=== PATIENT | male | born 1960 | race Caucasian/White ===

== ENCOUNTER 2016-07-22 18:06 | Emergency (ER) | payer OTHER ==
[2016-07-22 14:27] LABS: BASOPHILS 0.4 %; BASOPHILS ABSOLUTE 0.03 10/3/uL (0.0-0.16); EOSINOPHILS 0 %; ER CBC TAT 0 Hrs 10 Mins; HEMATOCRIT 48.3 % (40.0-51.0); HEMOGLOBIN 16.8 g/dL (13.6-17.8); IMMATURE GRANULOCYTES 1.8 %; IMMATURE GRANULOCYTES ABSOLUTE 0.13 10/3/uL (0.0-0.11); LYMPHOCYTES ABSOLUTE 0.89 10/3/uL (0.67-4.30); MANUAL DIFF NO %; MEAN CORPUS HGB CONC 34.8 g/dL (32.0-36.0); MEAN CORPUSCULAR HEMOGLOB 30.4 pg (26.0-34.0); MEAN CORPUSCULAR VOLUME 87.3 fL (80-100); MEAN PLATELET VOLUME 9.6 fL (9.2-13.0); MONOCYTES 5.7 %; MONOCYTES ABSOLUTE 0.42 10/3/uL (0.21-1.20); NEUTROPHILS 80.1 %; NEUTROPHILS ABSOLUTE 5.92 10/3/uL (2.02-8.40); PLATELET COUNT 200 10/3/uL (150-400); RBC DISTRIBUTION WIDTH 13.6 % (12.0-16.0); RED CELL COUNT 5.53 10/6/uL (4.7-6.1); WHITE BLOOD CELLS 7.4 10/3/uL (4.5-10.5)
[2016-07-22 14:43] LABS: A/G RATIO 0.8 (0.7-1.9); ALBUMIN 3.8 G/DL (3.5-5.0); ALKALINE PHOSPHATASE 90 U/L (45-117); BUN (BLOOD UREA NITROGEN) 9 MG/DL (6-23); CALCIUM, SERUM 8.7 MG/DL (8.5-10.4); CHLORIDE, SERUM 106 MMOL/L (96-112); CO2 (CARBON DIOXIDE) 13 MMOL/L (24-34); CREATININE 1.35 MG/DL (0.70-1.30); GFR AFRICAN AMERICAN 68 ML/MIN (>=60); GFR NON AFRICAN AMERICAN 59 ML/MIN (>=60); GLOBULIN 4.5 G/DL (2.5-4.1); GLUCOSE, SERUM 198 MG/DL (60-99); SGOT(AST) 20 U/L (5-40); SGPT(ALT) 35 U/L (5-65); SODIUM, SERUM 137 MMOL/L (135-148); TOTAL BILIRUBIN 0.6 MG/DL (0-1.2); TOTAL PROTEIN 8.3 G/DL (6.0-8.5)
[2016-07-22 17:38] LABS: ACETONE LARGE
[2016-07-22 20:25] LABS: ASCORBIC ACID (UR NOT ORDER) NEG (NEG); BILIRUBIN, URINE NEGATIVE (NEG); ER URINALYSIS TAT 0 Hrs 19 Mins; KETONE, URINE 80 MG/DL (NEG); LEUKOCYTE ESTERASE(NOT OR NEG (NEG); NITRITE (URINE) NEG (NEG); WBC (NOT ORDERED) (RFLEX) < 1 (0-5)
[2016-07-23] MEDS ORDERED: GLUCCHONDR PO (15:14)
[2016-07-23] MEDS ORDERED: MYCELEX TROCHE10 MG PO (15:21)
[2016-07-23] MEDS ORDERED: TRICOR145 PO (15:22)
[2016-07-23] MEDS ORDERED: [UNRECOGNIZED DRUG - CODE] PO (15:22)
[2016-07-23] MEDS ORDERED: PR25 PO (15:24)
[2016-08-22] MEDS ORDERED: LEVEMIR SC (09:39)
== END 2016-07-22 21:52 | disposition home or self-care (01) ==
LOC: ER 18:06
PROVIDERS: Hospitalist
DX: E86.0 Dehydration (principal); E11.9 Type 2 diabetes mellitus without complications
CPT/HCPCS: 74176; 80053; 81001; 82009; 83690; 85025; 96361; 96374; 99284; J2405

== ENCOUNTER 2016-07-23 15:57 | Inpatient (IN) | payer OTHER ==
--- NOTE | ~2016-07-23 | DS ---
Discharge Summary [facility] [address] [place]. [address] NAME: NICA LAGUNA : 62 STATUS : DIS IN PAT#: [id number] AGE: 56 ADM/REG DATE : 07/23/16 MR#: [id number] REPORT SERV DATE: 08/09/16 DICTATED BY: DEANA RICHARDSON DATE: 08/08/16 REPORT STATUS : Draft TRANSCRIBED BY: MODL DATE: 08/08/16 ADMISSION DATE: 07/23/2016 DISCHARGE DATE: 07/31/2016 DISCHARGE DIAGNOSES: 1. Diabetic ketoacidosis. 2. Acute renal failure. 3. Hypokalemia. 4. Hypophosphatemia. 5. Hyponatremia. 6. Acute encephalopathy. 7. Type 2 diabetes. 8. Pancreatic tail mass nodule. Initial ICU care admission by Dr. Odom. CONSULTATIONS: With Dr. Salcedo, Dr. Daly, and Dr. Jose Voss. DISCHARGE DISPOSITION: Home with family. DISCHARGE MEDICATIONS AND INSTRUCTIONS: Instructions for insulin use. PCP in five to seven days. FOLLOWUP: Follow up with Dr. Ty as ordered for pancreatic cyst. Follow up with Dr. Voss as ordered for EUS and follow pancreatic mass. DISCHARGE MEDICATIONS: Protonix 40 mg one tab p.o. daily; MiraLAX over the counter as needed; glucosamine daily; TriCor 145 mg one tab p.o. daily; Phenergan 25 mg one tab p.o. q.4 hours as needed for nausea, vomiting, and diarrhea; Xigduo was stopped; was stopped; the patient to start Levemir 15 units b.i.d. HOSPITAL COURSE: Please see H and P for complete details of HPI. Briefly, Mr. Laguna is a very pleasant 56-year-old male, recently diagnosed with diabetes, started on medications, who presented in DKA, renal failure, and acute encephalopathy requiring ICU admission. The patient's initial pH was 6.9 with wide anion gap requiring multiple days of insulin drip therapy, IV fluids, and with pseudohyponatremia including hypernatremia. The patient was monitored with multiple electrolyte imbalances. This was in concurrence with GREG. Renal was consulted, as the patient was being treated aggressively for his DKA. Monitor closely. Renal function continued to improve. The patient was able to be transferred out of ICU with resolution of encephalopathy. Incidentally, the patient did have CT of abdomen and pelvis noting pancreatic nodule. This was also revaluated with IV contrast once GREG had resolved and it was thought safe to perform. The patient was noted to have a pancreatic mass. This prompted evaluation by Dr. Voss and GI consultation. However, due to the patient's acute presentation initially with DKA, will need continued monitoring and improvement with this. The patient is to have outpatient followup with EUS and General Surgery, Dr. Voss, along with Dr. Ty for further outpatient workup of Discharge Summary [address] [place]. [address] NAME: NICA LAGUNA : 62 STATUS : DIS IN PAT#: [id number] AGE: 56 ADM/REG DATE : 07/23/16 MR#: [id number] REPORT SERV DATE: 08/09/16 DICTATED BY: EDANA RICHARDSON DATE: 08/08/16 REPORT STATUS : Draft TRANSCRIBED BY: MODL DATE: 08/08/16 pancreatic nodule. The patient and family were in agreement of plan and aware of discharge planning. All questions were answered prior to discharge. DDN/MODL Deana Richardson MD / [id number] CC: MD MAHESH Hernandez
--- NOTE | ~2016-07-23 | CN ---
Consultation Report [facility] [address] [place]. [address] NAME: NICA LAGUNA : 62 STATUS : DIS IN PAT#: [id number] AGE: 56 ADM/REG DATE : 07/23/16 MR#: [id number] REPORT SERV DATE: 07/31/16 DICTATED BY: ANGELO CALDWELL DATE: 07/31/16 REPORT STATUS : Draft TRANSCRIBED BY: MODL DATE: 07/31/16 INPATIENT CONSULT NOTE DATE OF CONSULTATION: 07/31/2016 REASON FOR CONSULTATION: Pancreatic cystic lesion. HISTORY OF PRESENT ILLNESS: Mr. Laguna is a very pleasant 56-year-old male with no significant past medical history aside from newly diagnosed diabetes mellitus, who presented to the emergency room approximately one week ago with multiple complaints and was diagnosed with diabetic ketoacidosis. During his hospitalization, the patient underwent a CT scan of the abdomen and pelvis, which made mention of a soft tissue lesion in the tail of his pancreas. The patient underwent further imaging with a multiphase CT two days prior to this consultation for further evaluation. On that scan, the patient was found to have a 2.5 x 2.6 cystic lesion in the tail of the pancreas. There was no pancreatic ductal dilatation. There was no associated mass. There was no surrounding lymphadenopathy. The patient had been noted to have a mildly elevated CA 19-9 of 57. The patient has no family history of pancreatic cancer or other GI related malignancies that he is aware of. The patient has never had a prior episode of pancreatitis and is not a heavy drinker. The patient denies any history of abdominal trauma. No prior episodes of pancreatitis that the patient is aware of. GI was consulted for consideration of endoscopic ultrasound for further evaluation. REVIEW OF SYSTEMS: All systems reviewed and were negative aside from what was mentioned in history of present illness. Specifically, the patient denies any fevers or chills. No current nausea or vomiting. The patient had been constipated previously, but is currently moving his bowels without difficulty. No abdominal pain. No chest pain or shortness of breath. PAST MEDICAL HISTORY: 1. Chronic back pain. 2. New diagnosis of diabetes mellitus. FAMILY HISTORY: No family history of GI related malignancy. SOCIAL HISTORY: The patient denies any smoking, alcohol, or illicit substance use. ALLERGIES: THE PATIENT HAS NO KNOWN DRUG ALLERGIES. HOME MEDICATIONS: The patient's outpatient medications prior to admission were: 1. Metformin. 2. Glucosamine. Consultation Report [facility] [address] [place]. [address] NAME: NICA LAGUNA : 62 STATUS : DIS IN PAT#: [id number] AGE: 56 ADM/REG DATE : 07/23/16 MR#: [id number] REPORT SERV DATE: 07/31/16 DICTATED BY: ANGELO CALDWELL DATE: 07/31/16 REPORT STATUS : Draft TRANSCRIBED BY: SHEN DATE: 07/31/16 PHYSICAL EXAMINATION: VITAL SIGNS: Most recent vital signs include temperature of 98.3, pulse rate of 77, blood pressure of 130/69, saturating 98% on room air. GENERAL INSPECTION: Reveals an overweight middle-aged male, who is and is sitting in a chair. HEENT: Head is normocephalic, atraumatic. Sclerae nonicteric. Pupils appear equal and round. HEART: The patient has a regular rate and rhythm. No respiratory distress. Clear lung sounds. ABDOMEN: Soft, nontender, nondistended. EXTREMITIES: No cyanosis, clubbing, or edema. SKIN: No jaundice or rash. NEURO: No gross motor deficits. He is alert and oriented. Mood and affect are appropriate. Judgment appears to be intact. LABORATORY DATA: Most recent laboratory results include a CBC with a white count of 6.0, hemoglobin of 12.6, and a platelet count of a 144,000. Electrolyte panel was unremarkable aside from elevated glucose of 181. DIAGNOSTIC STUDIES: CT of the abdomen was reviewed personally by myself and showed evidence of a normal pancreas with an approximately 2.5 cm cyst in the tail. There was no pancreatic ductal dilatation upstream from this. No obvious connection to the pancreatic duct. No nodule seen along the wall of the cyst. No associated mass was seen. No local lymphadenopathy. ASSESSMENT AND PLAN: Mr. Laguna is a very pleasant 56-year-old male admitted for diabetic ketoacidosis and new diagnosis of diabetes mellitus, who was incidentally found to have a 2.5 cm cystic lesion in the tail of the pancreas. Differential diagnosis for this includes both pseudocyst and side-branch intraductal papillary mucinous neoplasm. No worrisome features. Would recommend that this is further evaluated either with MRI or with endoscopic ultrasound in the near future. However, this does not need to be done during this inpatient stay. The patient currently is asking if he can go home and have this followup as an outpatient, this is more than acceptable plan. Would recommend more definitive imaging sometime within the next month, but this is not emergent. Again, would have the lesion visualized for any sign of mural nodularity or associated mass by the cyst. EUS or MRCP may also be able to determine if there is connection with the main pancreatic duct, which would yield the diagnosis of side-branch intraductal papillary mucinous neoplasm. However, with the uniformly enhancing wall, this appears likely to be a small pseudocyst; however, intraductal papillary mucinous neoplasm is still within the differential, relatively low risk of a malignancy. The patient did have a mild elevation of CA 19-9 at 57; however, this can be seen also in a wide variety of benign pancreatic or biliary conditions such as acute pancreatitis, chronic pancreatitis, chronic liver disease, or other benign etiologies. The level was mildly elevated, but was less than 100. Would recommend further evaluation with EUS in the near future, but again this can be done as an outpatient as no other worrisome symptoms or signs were seen on CT. Consultation Report [place] [id number] [facility] [place]. [address] NAME: NICA LAGUNA : 62 STATUS : DIS IN PAT#: [id number] AGE: 56 ADM/REG DATE : 07/23/16 MR#: [id number] REPORT SERV DATE: 07/31/16 DICTATED BY: ANGELO CALDWELL DATE: 07/31/16 REPORT STATUS : Draft TRANSCRIBED BY: MODL DATE: 07/31/16 Thank you very much for this interesting consult. The patient is to follow up with Dr. Kanu Ty and/or Dr. Baron Waller as an outpatient. Please call with any questions or concerns you might have. [facility]/ANDRAL Angelo Caldwell MD / [id number] CC: MD Carolee Hernandez
--- NOTE | ~2016-07-23 | CN ---
Consultation Report [facility] [address] [place]. [address] NAME: NICA LAGUNA : 62 STATUS : DIS IN PAT#: [id number] AGE: 56 ADM/REG DATE : 07/23/16 MR#: [id number] REPORT SERV DATE: 08/01/16 DICTATED BY: YONATAN ALBERTO III DATE: 07/31/16 REPORT STATUS : Draft TRANSCRIBED BY: MODL DATE: 07/31/16 CONSULTATION DATE OF CONSULTATION: 07/31/2016 REASON FOR CONSULT: 1. Pancreatic tail mass. 2. Recommendation regarding surgical management. HISTORY OF PRESENT ILLNESS: We are asked to see this 56-year-old male hospitalized for the above reasons. The patient has been admitted to the hospital on 07/23/2016 with complications related to diabetes. He was incidentally found to have a mass in the tail of the pancreas. The patient was admitted with diabetic ketoacidosis and acute kidney insufficiency. He has been recently diagnosed with diabetes. At this time, he was asymptomatic and anxious to go home. He denies any abdominal pain. He denies any nausea or vomiting. His DKA and acute renal insufficiency have resolved. PAST MEDICAL HISTORY: 1. Diabetes mellitus, recently diagnosed. 2. Chronic back pain. 3. Gastroesophageal reflux disease. 4. Obesity. MEDICATIONS: Insulin, Protonix, Zofran, MiraLAX. PAST SURGERIES: Status post back surgery. SOCIAL HISTORY: The patient is . He works and lives locally. No history of tobacco or alcohol use. He has a previous history of tobacco use. FAMILY HISTORY: Positive for diabetes. ALLERGIES: HEPARIN. PHYSICAL EXAMINATION: GENERAL: He is an obese male, in no acute distress. He is alert and oriented x3. VITAL SIGNS: Blood pressure 118/57, pulse 93, temperature 98.3. HEENT: Unremarkable. Cranial nerves 2 through 12 were normal. LUNGS: Clear. CARDIAC: Normal. ABDOMEN: Soft. Nontender. No masses. EXTREMITIES: Normal. No edema. LABORATORY: CA-19-9 is slightly elevated at 57.9. CT scan of the abdomen and pelvis which I reviewed shows a cystic mass in the tail of pancreas. Consultation Report [facility] [address] [place]. [address] NAME: NICA LAGUNA : 62 STATUS : DIS IN PAT#: [id number] AGE: 56 ADM/REG DATE : 07/23/16 MR#: [id number] REPORT SERV DATE: 08/01/16 DICTATED BY: YONATAN ALBERTO III DATE: 07/31/16 REPORT STATUS : Draft TRANSCRIBED BY: SHEN DATE: 07/31/16 I have reviewed with Radiology and this is indeterminate lesion. ASSESSMENT: A 56-year-old male with cystic neoplasm of the tail of the pancreas. This is of indeterminate origin. This could be a benign pseudocyst or premalignant or malignant process. I agree with Dr. Daly that further workup with EUS is indicated to evaluate this lesion as to whether or not surgical resection or conservative observation would be warranted. The patient is anxious to go home today. We will schedule him for EUS with biopsy of this lesion per Dr. Baron Waller. I will see the patient back in followup after that and make a final decision as to whether or not, this can be followed on nonoperatively. FINAL ASSESSMENT: 1. 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 2. Insulin dependent diabetes mellitus. 3. Obesity. PLAN: As above. The patient will go home today and will make arrangements for outpatient EUS with followup as above. The patient had questions which have been answered. He understands and agrees to this as planned. [facility]/SHEN Yonatan Alberto III, M.D. / [id number] CC: MD Tosin Larson Alie McFall
--- NOTE | ~2016-07-23 | CN ---
Consultation Report [facility] [address] [place]. [address] NAME: NICA LAGUNA : 62 STATUS : ADM IN PAT#: [id number] AGE: 56 ADM/REG DATE : 07/23/16 MR#: [id number] REPORT SERV DATE: 07/25/16 DICTATED BY: LV SALCEDO DATE: 07/25/16 REPORT STATUS : Draft TRANSCRIBED BY: MODHolly DATE: 07/25/16 DATE OF CONSULTATION: 07/25/2016 INDICATION FOR CONSULTATION: Hypernatremia, acute kidney injury. HISTORY OF PRESENT ILLNESS: Mr. Laguna is a 56-year-old male who presented to the emergency room with history of nausea, vomiting, and altered mentation. He was found to have DKA and was initiated on intensive insulin therapy with IV fluids and bicarb supplement due to severe acidosis. His sodium has been persistently elevated following stabilization of blood sugars in the 165 to 166 range. His creatinine was 1.35 on admission, peaked at 1.65 and has fallen to 1.42. His phosphorus has been as low as 1.3 and potassium 2.9. On presentation, his ABG showed pH of 7.1 with moderate acetones in his serum screens and a hemoglobin of 14.2. He had just been initiated on metformin and glucosamine for underlying diabetes, which apparently began six years ago. Initial screening with CT scan of his abdomen did suggest a pancreatic nodule versus a splenule and followup CT scan was recommended. PAST MEDICAL HISTORY: Diabetes mellitus type 2 x6 years, L4-5 laminectomy in 1983. HOME MEDICATIONS: Metformin and glucosamine. FAMILY HISTORY: Mother with diabetes. No history of kidney failure/end-stage renal disease or cancer. ALLERGIES: NONE KNOWN. 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 He remotely used tobacco for 5 years, but none since 1983. No alcohol use. No illicit drug use. REVIEW OF SYSTEMS: The patient remains encephalopathic, typically repeating responses. He did indicate some lower extremity edema prior to hospitalization and confirmed his nausea and vomiting. The remainder of 12-point review of systems is not able to be obtained. PHYSICAL EXAMINATION: VITAL SIGNS: Blood pressure 145/79, temperature 98.3, pulse 100, and respiratory rate 16. GENERAL: Lethargic male, easily aroused, repeats responses. HEENT: No scleral icterus. Pupils equal and reactive to light. Extraocular movements are intact. Nares are pent. No lesions or discharge. Throat, no injection. Mucous membranes are somewhat dry. NECK: No thyromegaly, masses, or bruits. CHEST/LUNGS: Clear to auscultation. No pleural rub. CARDIAC: Regular rate and rhythm. No murmur, gallop, or rub. ABDOMEN: Some left upper quadrant and mid-epigastric discomfort on palpation. Bowel sounds are present in all quadrants. No masses. No bruits. No guarding. Consultation Report [facility] [address] [place]. [address] NAME: NICA LAGUNA : 62 STATUS : ADM IN [facility]#: [id number] AGE: 56 ADM/REG DATE : 07/23/16 MR#: [id number] REPORT SERV DATE: 07/25/16 DICTATED BY: LV SALCEDO DATE: 07/25/16 REPORT STATUS : Draft TRANSCRIBED BY: SHEN DATE: 07/25/16 : Indwelling Bishop. RECTAL: Not performed. EXTREMITIES: No edema. No calf tenderness. DERMIS: No rash. No skin lesions. MUSCULOSKELETAL: No deformity. No joint effusions. NEUROLOGIC: Moves extremities. Cranial nerves appear intact. Still remains confused with inability to respond to questions. CURRENT LABORATORY DATA: CBC with WBC of 9.2, platelet count 136, hemoglobin 15. Sodium of 165, potassium 3.3, phosphorus 2.7, magnesium 2.5, creatinine 1.42, CO2 is 15, chloride is 136. IMPRESSION: 1. Hypernatremia secondary to diabetic ketoacidosis, required bicarb administration for severe acidosis. 2. Diabetic ketoacidosis, improving. 3. Acute kidney injury secondary to prerenal state. 4. Altered mental status. 5. Pancreatic nodule. 6. Remote L4-5 laminectomy. 7. Electrolyte abnormalities with hypophosphatemia and hypokalemia. PLAN: 1. Concur with current administration of D5W at 250 mL/h. 2. Additional lab. 3. Concur with electrolyte replacement. 4. Ultrasound to assess kidney size. CG/MODL Lv Salcedo M.D. / [id number] CC: MD ROSARIO Larson ALIE MCFALL
--- NOTE | ~2016-07-23 | HP ---
History And Physical [facility] [address] [place]. [address] NAME: NICA LAGUNA : 62 STATUS : ADM IN [facility]#: [id number] AGE: 56 ADM/REG DATE : 07/23/16 MR#: [id number] REPORT SERV DATE: 07/23/16 DICTATED BY: HAZEL ODOM DATE: 07/23/16 REPORT STATUS : Draft TRANSCRIBED BY: MODL DATE: 07/23/16 DATE OF ADMISSION: 07/23/2016 REASON FOR ADMISSION: DKA. CHIEF COMPLAINT: Unable to obtain due to the patient's current medical encephalopathy. HISTORY OF PRESENT ILLNESS: Mr. Laguna is a 56-year-old gentleman, who had a past medical history of obesity and chronic back pain, who has a new diagnosis of diabetes only six days ago, he was started on metformin, began having nausea and abdominal pain. He presented yesterday to the emergency room with the above complaints, but the patient wanted to go home and did not want to be admitted. However, his symptoms overnight became worse, he was no longer able to take p.o. intake, his is at the bedside and notes that he had worsening confusion, he became tachypneic, not taking food or drinking, and became lethargic and started vomiting. notes that he has had no stroke-like symptoms after we discussed what those are along with no chest pain. No fevers or chills either. Otherwise, no further problems. PAST MEDICAL HISTORY: Chronic back surgery around 10 years ago with chronic back pain, new diagnosis of underlying diabetes, and the thinks that the hemoglobin A1c is around 14 from what she could remember. HOME MEDICATIONS: Just got started on metformin and glucosamine for the knees. FAMILY HISTORY: Mother had diabetes. Otherwise, the family is quite healthy. ALLERGIES: NO KNOWN DRUG ALLERGIES. 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 No smoking, drinking, or illicit drug use. REVIEW OF SYSTEMS: All pertinent review of systems are reviewed and are currently in the HPI, history came from the and not the patient as he was quite encephalopathic. PHYSICAL EXAMINATION: VITAL SIGNS: The patient is currently afebrile, heart rate around 106, blood pressure currently 126/83, respiratory rate in the high 20s, and oxygen saturation 98%. GENERAL: The patient is encephalopathic, tachypneic, is able to follow commands. HEENT: Face is red, notes that this has been going on since yesterday, no tenderness. NECK: Supple. PULMONARY: Clear to auscultation bilaterally, no wheezing. CARDIAC: Tachycardia, no murmurs. ABDOMEN: Soft, nontender, nondistended. Distant bowel sounds. No guarding or rebound. EXTREMITIES: The patient has pulses noted in all extremities, lukewarm, is able to move all extremities. History And Physical [address] [address] NAME: NICA LAGUNA : 62 STATUS : ADM IN [facility]#: [id number] AGE: 56 ADM/REG DATE : 07/23/16 MR#: [id number] REPORT SERV DATE: 07/23/16 DICTATED BY: HAZEL ODOM DATE: 07/23/16 REPORT STATUS : Draft TRANSCRIBED BY: MODHolly DATE: 07/23/16 NEUROLOGIC: Cranial nerve examination is negative. The patient is able to move all extremities with no difficulty, mainly the patient is encephalopathic. LABORATORY EXAMINATION: The patient has a glucose of around 368, mild leukocytosis, bicarbonate is 6, creatinine 1.65. Lipase is 970. Arterial blood gas shows a pH of 6.94, pCO2 of 12, and pO2 of 130. Urinalysis shows essentially no white blood cell count, ketones, blood, no leukocyte esterase or nitrite. IMAGING DATA: CT scan shows no significant findings that was from yesterday. There is a concern of a pancreatic nodular density. Current chest x-ray today shows no acute process. ASSESSMENT AND PLAN: Mr. Laguna is a 56-year-old gentleman with a past medical history noted above, who presents to the emergency room after being home after coming to the ER yesterday with the above-named complaints with now what seems to be full diabetic ketoacidosis with a mild acute kidney injury and encephalopathy. 1. Diabetic ketoacidosis: At this moment in time, we will go ahead and start an insulin drip, check for magnesium and phosphorus, and ensure the patient's acidosis resolves. We will continue fluid rehydration. 2. Possible etiologies of diabetic ketoacidosis: Currently, troponin is negative, EKG is without any acute ischemic changes, no stroke symptoms, most likely diabetic ketoacidosis, I wonder whether metformin may have started some of the nausea and dehydration. The patient most likely needs to be on insulin, we will check a hemoglobin A1c. 3. Acute kidney injury: We will continue to give IV fluids. I assume this will improve with IV fluid rehydration. 4. Encephalopathy: As noted above, this most likely will improve. 5. Pancreatic nodular density: This was noted yesterday. I will notify the that this needs to be followed up, potentially we can follow this up later on in this hospitalization or as an outpatient as the kidney function improves as the patient will need to be on IV contrast for this evaluation. 6. Diet: The patient is currently n.p.o. 7. Code status: The patient is full code. HFQ/MODL Hazel Odom MD / [id number] CC: History And Physical [address] [address] NAME: NICA LAGUNA : 62 STATUS : ADM IN [facility]#: [id number] AGE: 56 ADM/REG DATE : 07/23/16 MR#: [id number] REPORT SERV DATE: 07/23/16 DICTATED BY: HAZEL ODOM DATE: 07/23/16 REPORT STATUS : Draft TRANSCRIBED BY: MODL DATE: 07/23/16 MD ROSARIO Larson ALIE MCFALL
--- NOTE | ~2016-07-23 | IDS ---
Interim Discharge Summary [facility] [address] [place]. [address] NAME: NICA LAGUNA : 62 STATUS : ADM IN PAT#: [id number] AGE: 56 ADM/REG DATE : 07/23/16 MR#: [id number] REPORT SERV DATE: 07/26/16 DICTATED BY: GOPI WASHINGTON DATE: 07/26/16 REPORT STATUS : Draft TRANSCRIBED BY: MODL DATE: 07/26/16 ADMISSION DATE: 07/23/2016 DISCHARGE DATE: 07/26/2016 INTERIM DIAGNOSES: 1. Diabetic ketoacidosis. 2. Acute renal failure. 3. Hypokalemia. 4. Hypophosphatemia. 5. Hypernatremia. 6. Acute encephalopathy. 7. Type 2 diabetes. 8. Pancreatic nodule. ICU COURSE: Please see dictated H and P, for full patient's history and presentation. BRIEF SUMMARY: The patient is a 56-year-old, white gentleman, with a recent diagnosis of type 2 diabetes, recently started on home p.o. diabetes medications, who presented to the hospital back on 07/23/2016 with diabetic ketoacidosis, acute renal failure, and acute encephalopathy. 1. Diabetic ketoacidosis. The patient was very brittle and he was first admitted. He had a pH of 6.9 with a very large anion gap. The patient has remained on the insulin drip for several days, but today his anion gap is now closed. Currently, his IV fluids are D5W for hypernatremia. He had received normal saline and D5 half-normal saline for some time until he developed hypernatremia. Given his gap is closed he is wanting to attempt to eat breakfast and lunch today. If he tolerates p.o. my plan is to transition him today from IV insulin to subcu sliding-scale insulin. If his renal function continues to improve then we can restart his home metformin tomorrow. I will also get the clinical nurse educator to see him today. 2. Acute renal failure. Renal has been following. He had some acute renal failure when he came in, likely secondary to volume depletion. He is currently making good urine and his creatinine is improving. Renal will continue to follow. 3. Hypernatremia. The patient initially had a normal sodium, but after 24 to 48 hours of hydration with normal saline and sodium bicarbonate he developed hypernatremia with a sodium in the high 160s. Yesterday, we decided to discontinue his IV fluids and place him on D5W. His sodium is improving and is now in the high 150s today. We are continuing D5W and checking the BMP every 6 hours. Once his sodium gets down to a normal range we will discontinue the D5W. Renal is also following and helping assist in managing this. 4. Hypokalemia. He continues on electrolyte replacement protocol for this. 5. Acute encephalopathy. The patient was very encephalopathic on arrival and today for the first time is very much awake, and alert and oriented x3. The patient's mental status is much improved, and we will continue to monitor this. 6. Pancreatic nodule. The patient on his abdominal CT scan when he first came into the hospital had a questionable pancreatic nodule. When the patient improves then can go down to CT scanner, he probably needs to have a 3-phase CT scan done to look at his Interim Discharge Summary [address] [address] NAME: NICA LAGUNA : 62 STATUS : ADM IN PAT#: [id number] AGE: 56 ADM/REG DATE : 07/23/16 MR#: [id number] REPORT SERV DATE: 07/26/16 DICTATED BY: GOPI WASHINGTON DATE: 07/26/16 REPORT STATUS : Draft TRANSCRIBED BY: SHEN DATE: 07/26/16 pancreas. This will need to be follow up on prior to his discharge. 7. The patient will remain in the ICU for today, but can likely be transitioned to the floor in the next 24 to 48 hours if he continues to improve. For now the oncoming training manager will assume his care. Please call if you have any questions. LALITHA/SHEN Gopi Washington MD / [phone] CC: MD Carolee Larson FNP
--- NOTE | ~2016-07-23 | CN ---
Consultation Report [facility] [address] [place]. 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 This is of indeterminate origin. This could be a benign pseudocyst or premalignant or malignant process. I agree with Dr. Daly that further workup with EUS is indicated to evaluate this lesion as to whether or not surgical resection or conservative observation would be warranted. The patient is anxious to go home today. We will schedule him for EUS with biopsy of this lesion per Dr. Baron Waller. I will see the patient back in followup after that and make a final decision as to whether or not, this can be followed on nonoperatively. FINAL ASSESSMENT: 1. 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 2. Insulin dependent diabetes mellitus. 3. Obesity. PLAN: As above. The patient will go home today and will make arrangements for outpatient EUS with followup as above. The patient had questions which have been answered. He understands and agrees to this as planned. RUTH ANN/SHEN Yonatan Alberto III, M.D. / [phone] CC: MD MAHESH Hernandez
[2016-07-23 15:00] LABS: BE (BASE EXCESS) -28.2 MEQ/L (0 +/- 2.5); HCO3 (ACTUAL BICARBONATE) 2.5 MEQ/L (23-27); HEMOBLOGIN CONTENT 16.9 G/DL (14-18); INSTRUMENT SERIAL # 8087; METHEMOGLOBIN 0.4 % (0-3); PCO2 (CO2 TENSION) 12 MMHG (35-45); PO2 (O2 TENSION) 130 MMHG (79-93); pH 6.94 (7.37-7.43)
[2016-07-23 15:01] LABS: ALLENS TEST Pos; O2 CONTENT 23.2 VOL% (18-24); OPERATOR ID 14335; SAMPLE Arterial
[2016-07-23 15:09] LABS: BASOPHILS 0.5 %; BASOPHILS ABSOLUTE 0.07 10/3/uL (0.0-0.16); EOSINOPHILS 0 %; HEMATOCRIT 46.9 % (40.0-51.0); IMMATURE GRANULOCYTES 6.1 %; IMMATURE GRANULOCYTES ABSOLUTE 0.94 10/3/uL (0.0-0.11); LYMPHOCYTES 7.4 %; LYMPHOCYTES ABSOLUTE 1.13 10/3/uL (0.67-4.30); MEAN CORPUS HGB CONC 34.1 g/dL (32.0-36.0); MEAN CORPUSCULAR HEMOGLOB 30.2 pg (26.0-34.0); MEAN CORPUSCULAR VOLUME 88.7 fL (80-100); MEAN PLATELET VOLUME 9.6 fL (9.2-13.0); MONOCYTES 11.8 %; MONOCYTES ABSOLUTE 1.81 10/3/uL (0.21-1.20); NEUTROPHILS 74.2 %; PLATELET COUNT 224 10/3/uL (150-400); RBC DISTRIBUTION WIDTH 14.4 % (12.0-16.0); RED CELL COUNT 5.29 10/6/uL (4.7-6.1)
[2016-07-23 15:13] LABS: ER CBC TAT 0 Hrs 10 Mins; MANUAL DIFF NO %; WHITE BLOOD CELLS 15.4 10/3/uL (4.5-10.5)
[2016-07-23 15:18] LABS: ASCORBIC ACID (UR NOT ORDER) NEG (NEG); BILIRUBIN, URINE NEGATIVE (NEG); ER URINALYSIS TAT 0 Hrs 15 Mins; KETONE, URINE 80 MG/DL (NEG); LEUKOCYTE ESTERASE(NOT OR NEG (NEG); NITRITE (URINE) NEG (NEG); WBC (NOT ORDERED) (RFLEX) 4 (0-5)
[2016-07-23 15:24] LABS: INTERNATIONAL NORMAL RATI 1.4 UNITS (-); PROTIME (NOT ORD) 17.2 SEC (12.0-14.5)
[2016-07-23 15:25] LABS: BENZODIAZEPINES (NOT ORD) NEG (NEG); PHENCYCLIDINE(PCP) NEG (NEG)
[2016-07-23 15:26] LABS: AMPHETAMINES (NOT ORD) NEG (NEG); BARBITURATES (NOT ORDERED NEG (NEG); CANNABINOIDS (THC) NEG (NEG); COCAINE (NOT ORDERED) NEG (NEG); OPIATES NEG (NEG); TRICYCLICS NEG (NEG)
[2016-07-23 15:34] LABS: A/G RATIO 0.9 (0.7-1.9); ALBUMIN 3.4 G/DL (3.5-5.0); ALKALINE PHOSPHATASE 92 U/L (45-117); CALCIUM, SERUM 8.1 MG/DL (8.5-10.4); CHLORIDE, SERUM 116 MMOL/L (96-112); CREATININE 1.65 MG/DL (0.70-1.30); GFR AFRICAN AMERICAN 53 ML/MIN (>=60); GFR NON AFRICAN AMERICAN 46 ML/MIN (>=60); GLOBULIN 3.7 G/DL (2.5-4.1); POTASSIUM, SERUM 3.5 MMOL/L (3.5-5.3); SGOT(AST) 14 U/L (5-40); SGPT(ALT) 31 U/L (5-65); TOTAL BILIRUBIN 0.5 MG/DL (0-1.2); TOTAL PROTEIN 7.1 G/DL (6.0-8.5); TROPONIN I <0.02 NG/ML (<0.05); ULTRASENSITIVE TSH 0.381 MCIU/ML (0.358-3.740)
[2016-07-23 15:36] LABS: BUN (BLOOD UREA NITROGEN) 17 MG/DL (6-23); CO2 (CARBON DIOXIDE) 6 MMOL/L (24-34); SODIUM, SERUM 145 MMOL/L (135-148)
[2016-07-23 15:37] LABS: GLUCOSE, SERUM 359 MG/DL (60-99)
[2016-07-23 15:43] LABS: BAND NEUTROPHILS 7 %; ER DIFF TAT 0 Hrs 40 Mins; IMMATURE GRANS ABSOLUTE (CALC) 0.62 10/3/uL (0.0-0.11); LYMPHOCYTES 6 %; LYMPHOCYTES ABSOLUTE (CALC) 0.92 10/3/uL (0.67-4.30); METAMYELOCYTES 4 %; MONOCYTES 5 %; MONOCYTES ABSOLUTE (CALC) 0.77 10/3/uL (0.21-1.20); NEUTROPHILS ABSOLUTE (CALC) 13.09 10/3/uL (2.02-8.40); SEGMENTED NEUTROPHIL (0) 78 %; TOTAL NUCLEATED CELLS 100
[2016-07-23 15:44] LABS: PLATELET ESTIMATE ADQ (ADEQUATE); RBC MORPHOLOGY NORM (NORMAL)
[~2016-07-23 15:57] MED LIST: GLUCCHONDR PO; MYCELEX TROCHE10 MG PO; PR25 PO; TRICOR145 PO; [UNRECOGNIZED DRUG - CODE] PO
[2016-07-23 21:54] LABS: BUN (BLOOD UREA NITROGEN) 18 MG/DL (6-23); CALCIUM, SERUM 8.3 MG/DL (8.5-10.4); CHLORIDE, SERUM 125 MMOL/L (96-112); GFR AFRICAN AMERICAN 60 ML/MIN (>=60); GFR NON AFRICAN AMERICAN 52 ML/MIN (>=60)
[2016-07-23 22:01] LABS: CO2 (CARBON DIOXIDE) 10 MMOL/L (24-34); GLUCOSE, SERUM 93 MG/DL (60-99); PHOSPHORUS, SERUM 0.3 MG/DL (2.5-4.5); POTASSIUM, SERUM 2.7 MMOL/L (3.5-5.3); SODIUM, SERUM 154 MMOL/L (135-148)
[2016-07-23 22:18] LABS: ALLENS TEST Pos; BE (BASE EXCESS) -22.3 MEQ/L (0 +/- 2.5); CARBOXYHEMOGLOBIN 1.3 % (0-3); HCO3 (ACTUAL BICARBONATE) 5.3 MEQ/L (23-27); HEMOBLOGIN CONTENT 15.4 G/DL (14-18); INSTRUMENT SERIAL # 8083; METHEMOGLOBIN 0.4 % (0-3); O2 CONTENT 20.9 VOL% (18-24); OPERATOR ID 14661; PCO2 (CO2 TENSION) 17 MMHG (35-45); PO2 (O2 TENSION) 98 MMHG (79-93); SAMPLE Arterial
[2016-07-24 01:39] LABS: HEMOGLOBIN 14.7 g/dL (13.6-17.8); MEAN CORPUS HGB CONC 35.1 g/dL (32.0-36.0); MEAN CORPUSCULAR HEMOGLOB 30.2 pg (26.0-34.0); MEAN PLATELET VOLUME 8.8 fL (9.2-13.0); RBC DISTRIBUTION WIDTH 14.5 % (12.0-16.0); RED CELL COUNT 4.87 10/6/uL (4.7-6.1); WHITE BLOOD CELLS 10.4 10/3/uL (4.5-10.5)
[2016-07-24 01:41] LABS: HEMATOCRIT 41.9 % (40.0-51.0); MANUAL DIFF YES %; PLATELET COUNT 149 10/3/uL (150-400)
[2016-07-24 02:00] LABS: BUN (BLOOD UREA NITROGEN) 15 MG/DL (6-23); CHLORIDE, SERUM 126 MMOL/L (96-112); CREATININE 1.37 MG/DL (0.70-1.30); GFR AFRICAN AMERICAN 67 ML/MIN (>=60); GFR NON AFRICAN AMERICAN 58 ML/MIN (>=60); POTASSIUM, SERUM 3.2 MMOL/L (3.5-5.3)
[2016-07-24 02:01] LABS: SODIUM, SERUM 157 MMOL/L (135-148)
[2016-07-24 02:02] LABS: CO2 (CARBON DIOXIDE) 13 MMOL/L (24-34); GLUCOSE, SERUM 221 MG/DL (60-99); PHOSPHORUS, SERUM 0.8 MG/DL (2.5-4.5)
[2016-07-24 02:03] LABS: BAND NEUTROPHILS 5 %; IMMATURE GRANS ABSOLUTE (CALC) 0.52 10/3/uL (0.0-0.11); LYMPHOCYTES 5 %; LYMPHOCYTES ABSOLUTE (CALC) 0.52 10/3/uL (0.67-4.30); METAMYELOCYTES 5 %; MONOCYTES 3 %; MONOCYTES ABSOLUTE (CALC) 0.31 10/3/uL (0.21-1.20); NEUTROPHILS ABSOLUTE (CALC) 9.05 10/3/uL (2.02-8.40); PLATELET ESTIMATE SLT DEC (ADEQUATE); RBC MORPHOLOGY NORM (NORMAL); SEGMENTED NEUTROPHIL (0) 82 %; TOTAL NUCLEATED CELLS 100
[2016-07-24 02:22] LABS: BE (BASE EXCESS) -18.8 MEQ/L (0 +/- 2.5); CARBOXYHEMOGLOBIN 0.5 % (0-3); HCO3 (ACTUAL BICARBONATE) 6.8 MEQ/L (23-27); HEMOBLOGIN CONTENT 14.7 G/DL (14-18); INSTRUMENT SERIAL # 8083; METHEMOGLOBIN 0.2 % (0-3); O2 CONTENT 20.3 VOL% (18-24); OPERATOR ID 14661; PCO2 (CO2 TENSION) 18 MMHG (35-45); PO2 (O2 TENSION) 112 MMHG (79-93); SAMPLE Arterial
[2016-07-24 06:00] LABS: INSTRUMENT SERIAL # 8083; PCO2 (CO2 TENSION) 23 MMHG (35-45); PO2 (O2 TENSION) 87 MMHG (79-93); pH 7.26 (7.37-7.43)
[2016-07-24 06:01] LABS: CARBOXYHEMOGLOBIN 0.3 % (0-3); HEMOBLOGIN CONTENT 15.4 G/DL (14-18); METHEMOGLOBIN 0.2 % (0-3); OPERATOR ID 14661; SAMPLE Arterial
[2016-07-24 06:57] LABS: BUN (BLOOD UREA NITROGEN) 14 MG/DL (6-23); CALCIUM, SERUM 8.3 MG/DL (8.5-10.4); CHLORIDE, SERUM 127 MMOL/L (96-112); CREATININE 1.55 MG/DL (0.70-1.30); GFR AFRICAN AMERICAN 58 ML/MIN (>=60); GFR NON AFRICAN AMERICAN 50 ML/MIN (>=60)
[2016-07-24 07:02] LABS: CO2 (CARBON DIOXIDE) 14 MMOL/L (24-34); GLUCOSE, SERUM 154 MG/DL (60-99); PHOSPHORUS, SERUM 0.3 MG/DL (2.5-4.5); POTASSIUM, SERUM 2.5 MMOL/L (3.5-5.3); SODIUM, SERUM 158 MMOL/L (135-148)
[2016-07-24 09:14] LABS: BUN (BLOOD UREA NITROGEN) 14 MG/DL (6-23); CALCIUM, SERUM 8.6 MG/DL (8.5-10.4); CHLORIDE, SERUM 125 MMOL/L (96-112); CREATININE 1.49 MG/DL (0.70-1.30); GFR AFRICAN AMERICAN 60 ML/MIN (>=60); GFR NON AFRICAN AMERICAN 52 ML/MIN (>=60); GLUCOSE, SERUM 128 MG/DL (60-99)
[2016-07-24 09:15] LABS: CO2 (CARBON DIOXIDE) 17 MMOL/L (24-34); PHOSPHORUS, SERUM 0.3 MG/DL (2.5-4.5); POTASSIUM, SERUM 2.6 MMOL/L (3.5-5.3); SODIUM, SERUM 161 MMOL/L (135-148)
[2016-07-24 10:59] LABS: BUN (BLOOD UREA NITROGEN) 14 MG/DL (6-23); CALCIUM, SERUM 8.4 MG/DL (8.5-10.4); CHLORIDE, SERUM 125 MMOL/L (96-112); CREATININE 1.51 MG/DL (0.70-1.30); GFR AFRICAN AMERICAN 59 ML/MIN (>=60); GFR NON AFRICAN AMERICAN 51 ML/MIN (>=60); GLUCOSE, SERUM 177 MG/DL (60-99); PHOSPHORUS, SERUM 0.9 MG/DL (2.5-4.5); POTASSIUM, SERUM 3.1 MMOL/L (3.5-5.3); SODIUM, SERUM 161 MMOL/L (135-148)
[2016-07-24 11:13] LABS: CO2 (CARBON DIOXIDE) 12 MMOL/L (24-34)
[2016-07-24 13:12] LABS: BUN (BLOOD UREA NITROGEN) 14 MG/DL (6-23); CALCIUM, SERUM 8.7 MG/DL (8.5-10.4); CHLORIDE, SERUM 125 MMOL/L (96-112); CO2 (CARBON DIOXIDE) 10 MMOL/L (24-34); CREATININE 1.62 MG/DL (0.70-1.30); GFR AFRICAN AMERICAN 55 ML/MIN (>=60); GFR NON AFRICAN AMERICAN 47 ML/MIN (>=60); GLUCOSE, SERUM 235 MG/DL (60-99); PHOSPHORUS, SERUM 1.1 MG/DL (2.5-4.5); SODIUM, SERUM 158 MMOL/L (135-148)
[2016-07-24 13:13] LABS: POTASSIUM, SERUM 3.6 MMOL/L (3.5-5.3)
[2016-07-24 15:04] LABS: BUN (BLOOD UREA NITROGEN) 13 MG/DL (6-23); CALCIUM, SERUM 8.4 MG/DL (8.5-10.4); CHLORIDE, SERUM 127 MMOL/L (96-112); CO2 (CARBON DIOXIDE) 11 MMOL/L (24-34); CREATININE 1.67 MG/DL (0.70-1.30); GFR AFRICAN AMERICAN 53 ML/MIN (>=60); GFR NON AFRICAN AMERICAN 45 ML/MIN (>=60); GLUCOSE, SERUM 301 MG/DL (60-99); PHOSPHORUS, SERUM 1.7 MG/DL (2.5-4.5); POTASSIUM, SERUM 3.5 MMOL/L (3.5-5.3); SODIUM, SERUM 160 MMOL/L (135-148)
[2016-07-24 18:22] LABS: BUN (BLOOD UREA NITROGEN) 14 MG/DL (6-23); CALCIUM, SERUM 8.5 MG/DL (8.5-10.4); CHLORIDE, SERUM 129 MMOL/L (96-112); CREATININE 1.63 MG/DL (0.70-1.30); GFR AFRICAN AMERICAN 54 ML/MIN (>=60); GFR NON AFRICAN AMERICAN 47 ML/MIN (>=60); GLUCOSE, SERUM 276 MG/DL (60-99); PHOSPHORUS, SERUM 1.5 MG/DL (2.5-4.5)
[2016-07-24 18:43] LABS: POTASSIUM, SERUM 2.9 MMOL/L (3.5-5.3); SODIUM, SERUM 162 MMOL/L (135-148)
[2016-07-24 18:44] LABS: CO2 (CARBON DIOXIDE) 12 MMOL/L (24-34)
[2016-07-24 23:28] LABS: BUN (BLOOD UREA NITROGEN) 13 MG/DL (6-23); CALCIUM, SERUM 8.5 MG/DL (8.5-10.4); CHLORIDE, SERUM 133 MMOL/L (96-112); CREATININE 1.61 MG/DL (0.70-1.30); GFR AFRICAN AMERICAN 55 ML/MIN (>=60); GFR NON AFRICAN AMERICAN 47 ML/MIN (>=60); PHOSPHORUS, SERUM 1.3 MG/DL (2.5-4.5)
[2016-07-24 23:41] LABS: CO2 (CARBON DIOXIDE) 14 MMOL/L (24-34); GLUCOSE, SERUM 188 MG/DL (60-99); POTASSIUM, SERUM 2.9 MMOL/L (3.5-5.3); SODIUM, SERUM 165 MMOL/L (135-148)
[2016-07-25 03:27] LABS: BUN (BLOOD UREA NITROGEN) 13 MG/DL (6-23); CALCIUM, SERUM 8.4 MG/DL (8.5-10.4); CHLORIDE, SERUM 133 MMOL/L (96-112); CO2 (CARBON DIOXIDE) 16 MMOL/L (24-34); CREATININE 1.61 MG/DL (0.70-1.30); GFR AFRICAN AMERICAN 55 ML/MIN (>=60); GFR NON AFRICAN AMERICAN 47 ML/MIN (>=60); GLUCOSE, SERUM 222 MG/DL (60-99); POTASSIUM, SERUM 3.2 MMOL/L (3.5-5.3)
[2016-07-25 03:28] LABS: PHOSPHORUS, SERUM 2.1 MG/DL (2.5-4.5); SODIUM, SERUM 166 MMOL/L (135-148)
[2016-07-25 06:45] LABS: HEMATOCRIT 42.1 % (40.0-51.0); MANUAL DIFF YES %; MEAN CORPUS HGB CONC 35.6 g/dL (32.0-36.0); MEAN CORPUSCULAR HEMOGLOB 29.9 pg (26.0-34.0); MEAN PLATELET VOLUME 9.3 fL (9.2-13.0); PLATELET COUNT 136 10/3/uL (150-400); RBC DISTRIBUTION WIDTH 16.1 % (12.0-16.0); RED CELL COUNT 5.01 10/6/uL (4.7-6.1); WHITE BLOOD CELLS 9.2 10/3/uL (4.5-10.5)
[2016-07-25 07:10] LABS: BUN (BLOOD UREA NITROGEN) 13 MG/DL (6-23); CALCIUM, SERUM 8.3 MG/DL (8.5-10.4); CHLORIDE, SERUM 136 MMOL/L (96-112); CO2 (CARBON DIOXIDE) 15 MMOL/L (24-34); CREATININE 1.42 MG/DL (0.70-1.30); GFR AFRICAN AMERICAN 64 ML/MIN (>=60); GFR NON AFRICAN AMERICAN 55 ML/MIN (>=60); GLUCOSE, SERUM 186 MG/DL (60-99); PHOSPHORUS, SERUM 2.7 MG/DL (2.5-4.5); POTASSIUM, SERUM 3.3 MMOL/L (3.5-5.3); SODIUM, SERUM 165 MMOL/L (135-148)
[2016-07-25 07:22] LABS: BAND NEUTROPHILS 3 %; IMMATURE GRANS ABSOLUTE (CALC) 0.09 10/3/uL (0.0-0.11); LYMPHOCYTES 4 %; LYMPHOCYTES ABSOLUTE (CALC) 0.37 10/3/uL (0.67-4.30); METAMYELOCYTES 1 %; MONOCYTES 6 %; MONOCYTES ABSOLUTE (CALC) 0.55 10/3/uL (0.21-1.20); NEUTROPHILS ABSOLUTE (CALC) 8.19 10/3/uL (2.02-8.40); PLATELET ESTIMATE SLT DEC (ADEQUATE); RBC MORPHOLOGY NORM (NORMAL); SEGMENTED NEUTROPHIL (0) 86 %; TOTAL NUCLEATED CELLS 100
[2016-07-25 11:26] LABS: MICROALBUMIN, RANDOM URINE 7.4 MG/DL
[2016-07-25 13:42] LABS: BUN (BLOOD UREA NITROGEN) 11 MG/DL (6-23); CALCIUM, SERUM 8.4 MG/DL (8.5-10.4); CREATININE 1.41 MG/DL (0.70-1.30); GFR AFRICAN AMERICAN 65 ML/MIN (>=60); GFR NON AFRICAN AMERICAN 56 ML/MIN (>=60)
[2016-07-25 13:43] LABS: CHLORIDE, SERUM 132 MMOL/L (96-112); CO2 (CARBON DIOXIDE) 21 MMOL/L (24-34); GLUCOSE, SERUM 141 MG/DL (60-99); POTASSIUM, SERUM 3.2 MMOL/L (3.5-5.3); SODIUM, SERUM 165 MMOL/L (135-148)
[2016-07-25 15:54] LABS: BUN (BLOOD UREA NITROGEN) 11 MG/DL (6-23); CALCIUM, SERUM 8.1 MG/DL (8.5-10.4); CHLORIDE, SERUM 129 MMOL/L (96-112); CO2 (CARBON DIOXIDE) 22 MMOL/L (24-34); CREATININE 1.39 MG/DL (0.70-1.30); GFR AFRICAN AMERICAN 66 ML/MIN (>=60); GFR NON AFRICAN AMERICAN 57 ML/MIN (>=60); GLUCOSE, SERUM 182 MG/DL (60-99); POTASSIUM, SERUM 2.9 MMOL/L (3.5-5.3); SODIUM, SERUM 162 MMOL/L (135-148)
[2016-07-25 22:34] LABS: BUN (BLOOD UREA NITROGEN) 10 MG/DL (6-23); CALCIUM, SERUM 8.2 MG/DL (8.5-10.4); CHLORIDE, SERUM 127 MMOL/L (96-112); CO2 (CARBON DIOXIDE) 22 MMOL/L (24-34); CREATININE 1.33 MG/DL (0.70-1.30); GFR AFRICAN AMERICAN 69 ML/MIN (>=60); GFR NON AFRICAN AMERICAN 60 ML/MIN (>=60); GLUCOSE, SERUM 187 MG/DL (60-99)
[2016-07-25 22:35] LABS: SODIUM, SERUM 155 MMOL/L (135-148)
[2016-07-25 22:37] LABS: POTASSIUM, SERUM 4.4 MMOL/L (3.5-5.3)
[2016-07-26 03:34] LABS: BASOPHILS 0.3 %; BASOPHILS ABSOLUTE 0.02 10/3/uL (0.0-0.16); EOSINOPHILS 0.2 %; EOSINOPHILS ABSOLUTE 0.01 10/3/uL (0.0-0.53); HEMATOCRIT 42.3 % (40.0-51.0); HEMOGLOBIN 15.4 g/dL (13.6-17.8); IMMATURE GRANULOCYTES 0.5 %; IMMATURE GRANULOCYTES ABSOLUTE 0.03 10/3/uL (0.0-0.11); LYMPHOCYTES 28.1 %; LYMPHOCYTES ABSOLUTE 1.71 10/3/uL (0.67-4.30); MEAN CORPUS HGB CONC 36.4 g/dL (32.0-36.0); MEAN CORPUSCULAR HEMOGLOB 30.8 pg (26.0-34.0); MEAN CORPUSCULAR VOLUME 84.6 fL (80-100); MONOCYTES ABSOLUTE 0.73 10/3/uL (0.21-1.20); NEUTROPHILS 58.9 %; NEUTROPHILS ABSOLUTE 3.58 10/3/uL (2.02-8.40); PLATELET COUNT 118 10/3/uL (150-400); RBC DISTRIBUTION WIDTH 15.7 % (12.0-16.0); WHITE BLOOD CELLS 6.1 10/3/uL (4.5-10.5)
[2016-07-26 03:35] LABS: MANUAL DIFF NO %
[2016-07-26 03:56] LABS: ALBUMIN 2.9 G/DL (3.5-5.0); BUN (BLOOD UREA NITROGEN) 8 MG/DL (6-23); CALCIUM, SERUM 8.3 MG/DL (8.5-10.4); CHLORIDE, SERUM 122 MMOL/L (96-112); CO2 (CARBON DIOXIDE) 25 MMOL/L (24-34); CREATININE 1.19 MG/DL (0.70-1.30); GFR AFRICAN AMERICAN 79 ML/MIN (>=60); GFR NON AFRICAN AMERICAN 68 ML/MIN (>=60); GLUCOSE, SERUM 214 MG/DL (60-99)
[2016-07-26 04:00] LABS: PHOSPHORUS, SERUM 1.4 MG/DL (2.5-4.5); POTASSIUM, SERUM 2.7 MMOL/L (3.5-5.3); SODIUM, SERUM 157 MMOL/L (135-148)
[2016-07-26 09:48] LABS: BUN (BLOOD UREA NITROGEN) 8 MG/DL (6-23); CALCIUM, SERUM 8.1 MG/DL (8.5-10.4); CHLORIDE, SERUM 120 MMOL/L (96-112); CO2 (CARBON DIOXIDE) 26 MMOL/L (24-34); CREATININE 1.02 MG/DL (0.70-1.30); GFR AFRICAN AMERICAN 95 ML/MIN (>=60); GFR NON AFRICAN AMERICAN 82 ML/MIN (>=60); SODIUM, SERUM 153 MMOL/L (135-148)
[2016-07-26 09:49] LABS: GLUCOSE, SERUM 141 MG/DL (60-99); PHOSPHORUS, SERUM 2.5 MG/DL (2.5-4.5); POTASSIUM, SERUM 3.5 MMOL/L (3.5-5.3)
[2016-07-26 17:09] LABS: BUN (BLOOD UREA NITROGEN) 9 MG/DL (6-23); CALCIUM, SERUM 8.1 MG/DL (8.5-10.4); CHLORIDE, SERUM 118 MMOL/L (96-112); CO2 (CARBON DIOXIDE) 26 MMOL/L (24-34); CREATININE 0.92 MG/DL (0.70-1.30); GFR AFRICAN AMERICAN 108 ML/MIN (>=60); GFR NON AFRICAN AMERICAN 93 ML/MIN (>=60); GLUCOSE, SERUM 204 MG/DL (60-99); PHOSPHORUS, SERUM 1.3 MG/DL (2.5-4.5); SODIUM, SERUM 152 MMOL/L (135-148)
[2016-07-26 23:10] LABS: BUN (BLOOD UREA NITROGEN) 9 MG/DL (6-23); CALCIUM, SERUM 8.4 MG/DL (8.5-10.4); CHLORIDE, SERUM 117 MMOL/L (96-112); CO2 (CARBON DIOXIDE) 31 MMOL/L (24-34); CREATININE 0.79 MG/DL (0.70-1.30); GFR AFRICAN AMERICAN 117 ML/MIN (>=60); GFR NON AFRICAN AMERICAN 101 ML/MIN (>=60); GLUCOSE, SERUM 125 MG/DL (60-99); PHOSPHORUS, SERUM 1.7 MG/DL (2.5-4.5); POTASSIUM, SERUM 3.3 MMOL/L (3.5-5.3); SODIUM, SERUM 152 MMOL/L (135-148)
[2016-07-27 04:57] LABS: BASOPHILS 0.6 %; BASOPHILS ABSOLUTE 0.03 10/3/uL (0.0-0.16); EOSINOPHILS 0.6 %; EOSINOPHILS ABSOLUTE 0.03 10/3/uL (0.0-0.53); HEMATOCRIT 35.5 % (40.0-51.0); HEMOGLOBIN 12.7 g/dL (13.6-17.8); IMMATURE GRANULOCYTES ABSOLUTE 0.05 10/3/uL (0.0-0.11); LYMPHOCYTES 40.6 %; LYMPHOCYTES ABSOLUTE 2.01 10/3/uL (0.67-4.30); MANUAL DIFF NO %; MEAN CORPUS HGB CONC 35.8 g/dL (32.0-36.0); MEAN CORPUSCULAR HEMOGLOB 30.5 pg (26.0-34.0); MEAN CORPUSCULAR VOLUME 85.1 fL (80-100); MEAN PLATELET VOLUME 9.5 fL (9.2-13.0); MONOCYTES 10.7 %; MONOCYTES ABSOLUTE 0.53 10/3/uL (0.21-1.20); NEUTROPHILS 46.5 %; PLATELET COUNT 96 10/3/uL (150-400); RBC DISTRIBUTION WIDTH 15.1 % (12.0-16.0); RED CELL COUNT 4.17 10/6/uL (4.7-6.1)
[2016-07-27 05:11] LABS: ALBUMIN 2.4 G/DL (3.5-5.0); BUN (BLOOD UREA NITROGEN) 9 MG/DL (6-23); CHLORIDE, SERUM 115 MMOL/L (96-112); CO2 (CARBON DIOXIDE) 28 MMOL/L (24-34); CREATININE 0.68 MG/DL (0.70-1.30); GFR AFRICAN AMERICAN 125 ML/MIN (>=60); GFR NON AFRICAN AMERICAN 108 ML/MIN (>=60); PHOSPHORUS, SERUM 2.1 MG/DL (2.5-4.5); POTASSIUM, SERUM 3.3 MMOL/L (3.5-5.3); SODIUM, SERUM 149 MMOL/L (135-148)
[2016-07-27 05:12] LABS: GLUCOSE, SERUM 231 MG/DL (60-99)
[2016-07-27 22:38] LABS: BUN (BLOOD UREA NITROGEN) 8 MG/DL (6-23); CALCIUM, SERUM 8.3 MG/DL (8.5-10.4); CHLORIDE, SERUM 113 MMOL/L (96-112); CO2 (CARBON DIOXIDE) 30 MMOL/L (24-34); CREATININE 0.73 MG/DL (0.70-1.30); GFR AFRICAN AMERICAN 121 ML/MIN (>=60); GFR NON AFRICAN AMERICAN 104 ML/MIN (>=60); POTASSIUM, SERUM 3.5 MMOL/L (3.5-5.3); SODIUM, SERUM 147 MMOL/L (135-148)
[2016-07-27 22:39] LABS: GLUCOSE, SERUM 160 MG/DL (60-99)
[2016-07-28 04:14] LABS: BASOPHILS 0.6 %; BASOPHILS ABSOLUTE 0.03 10/3/uL (0.0-0.16); EOSINOPHILS 1.9 %; HEMOGLOBIN 12.4 g/dL (13.6-17.8); IMMATURE GRANULOCYTES 1.9 %; LYMPHOCYTES 38.4 %; LYMPHOCYTES ABSOLUTE 2.01 10/3/uL (0.67-4.30); MEAN CORPUS HGB CONC 34.4 g/dL (32.0-36.0); MEAN CORPUSCULAR HEMOGLOB 29.7 pg (26.0-34.0); MEAN CORPUSCULAR VOLUME 86.3 fL (80-100); MEAN PLATELET VOLUME 9.3 fL (9.2-13.0); MONOCYTES ABSOLUTE 0.63 10/3/uL (0.21-1.20); NEUTROPHILS 45.2 %; NEUTROPHILS ABSOLUTE 2.37 10/3/uL (2.02-8.40); PLATELET COUNT 101 10/3/uL (150-400); RBC DISTRIBUTION WIDTH 14.1 % (12.0-16.0); RED CELL COUNT 4.17 10/6/uL (4.7-6.1); WHITE BLOOD CELLS 5.2 10/3/uL (4.5-10.5)
[2016-07-28 04:15] LABS: MANUAL DIFF NO %
[2016-07-28 04:35] LABS: PHOSPHORUS, SERUM 2.1 MG/DL (2.5-4.5)
[2016-07-28 06:44] LABS: BUN (BLOOD UREA NITROGEN) 7 MG/DL (6-23); CALCIUM, SERUM 8.1 MG/DL (8.5-10.4); CHLORIDE, SERUM 114 MMOL/L (96-112); CO2 (CARBON DIOXIDE) 27 MMOL/L (24-34); CREATININE 0.82 MG/DL (0.70-1.30); GFR AFRICAN AMERICAN 115 ML/MIN (>=60); GFR NON AFRICAN AMERICAN 100 ML/MIN (>=60); GLUCOSE, SERUM 142 MG/DL (60-99); POTASSIUM, SERUM 3.4 MMOL/L (3.5-5.3); SODIUM, SERUM 148 MMOL/L (135-148)
[2016-07-29 06:56] LABS: BASOPHILS 0.3 %; BASOPHILS ABSOLUTE 0.02 10/3/uL (0.0-0.16); EOSINOPHILS 1.7 %; HEMOGLOBIN 12.9 g/dL (13.6-17.8); IMMATURE GRANULOCYTES 2.2 %; IMMATURE GRANULOCYTES ABSOLUTE 0.13 10/3/uL (0.0-0.11); LYMPHOCYTES 27.7 %; LYMPHOCYTES ABSOLUTE 1.64 10/3/uL (0.67-4.30); MEAN CORPUS HGB CONC 33.9 g/dL (32.0-36.0); MEAN CORPUSCULAR HEMOGLOB 29.8 pg (26.0-34.0); MEAN CORPUSCULAR VOLUME 87.8 fL (80-100); MEAN PLATELET VOLUME 9.3 fL (9.2-13.0); MONOCYTES 16.9 %; NEUTROPHILS 51.2 %; NEUTROPHILS ABSOLUTE 3.02 10/3/uL (2.02-8.40); PLATELET COUNT 116 10/3/uL (150-400); RBC DISTRIBUTION WIDTH 14.1 % (12.0-16.0); RED CELL COUNT 4.33 10/6/uL (4.7-6.1); WHITE BLOOD CELLS 5.9 10/3/uL (4.5-10.5)
[2016-07-29 07:00] LABS: MANUAL DIFF NO %
[2016-07-29 07:10] LABS: BUN (BLOOD UREA NITROGEN) 9 MG/DL (6-23); CHLORIDE, SERUM 110 MMOL/L (96-112); CO2 (CARBON DIOXIDE) 30 MMOL/L (24-34); GFR AFRICAN AMERICAN 111 ML/MIN (>=60); GFR NON AFRICAN AMERICAN 96 ML/MIN (>=60); POTASSIUM, SERUM 3.8 MMOL/L (3.5-5.3); SODIUM, SERUM 147 MMOL/L (135-148)
[2016-07-29 07:11] LABS: CALCIUM, SERUM 9.2 MG/DL (8.5-10.4); GLUCOSE, SERUM 261 MG/DL (60-99)
[2016-07-29 13:40] LABS: HEPARIN-INDUCED PLATELET AB NEGATIVE (NEGATIVE); HIT PATIENT O.D. 0.142 OD (0.000-0.299)
[2016-07-29 23:57] LABS: CA-19-9 57.9 U/ML (< 37.0)
[2016-07-31 05:59] LABS: BUN (BLOOD UREA NITROGEN) 8 MG/DL (6-23); CALCIUM, SERUM 9.2 MG/DL (8.5-10.4); CHLORIDE, SERUM 106 MMOL/L (96-112); CO2 (CARBON DIOXIDE) 32 MMOL/L (24-34); CREATININE 0.91 MG/DL (0.70-1.30); GFR AFRICAN AMERICAN 110 ML/MIN (>=60); GFR NON AFRICAN AMERICAN 95 ML/MIN (>=60); GLUCOSE, SERUM 181 MG/DL (60-99); POTASSIUM, SERUM 3.5 MMOL/L (3.5-5.3); SODIUM, SERUM 146 MMOL/L (135-148)
[2016-07-31 06:03] LABS: HEMATOCRIT 37.8 % (40.0-51.0); HEMOGLOBIN 12.6 g/dL (13.6-17.8); MEAN CORPUS HGB CONC 33.3 g/dL (32.0-36.0); MEAN CORPUSCULAR HEMOGLOB 30.1 pg (26.0-34.0); MEAN CORPUSCULAR VOLUME 90.2 fL (80-100); MEAN PLATELET VOLUME 9.5 fL (9.2-13.0); PLATELET COUNT 144 10/3/uL (150-400); RBC DISTRIBUTION WIDTH 13.8 % (12.0-16.0); RED CELL COUNT 4.19 10/6/uL (4.7-6.1)
[2016-07-31 06:06] LABS: MANUAL DIFF YES %
[2016-07-31 07:04] LABS: BAND NEUTROPHILS 2 %; EOSINOPHILS 2 %; EOSINOPHILS ABSOLUTE (CALC) 0.12 10/3/uL (0.0-0.53); LYMPHOCYTES 31 %; LYMPHOCYTES ABSOLUTE (CALC) 1.86 10/3/uL (0.67-4.30); MONOCYTES 13 %; MONOCYTES ABSOLUTE (CALC) 0.78 10/3/uL (0.21-1.20); NEUTROPHILS ABSOLUTE (CALC) 3.24 10/3/uL (2.02-8.40); PLATELET ESTIMATE SLT DEC (ADEQUATE); RBC MORPHOLOGY NORM (NORMAL); SEGMENTED NEUTROPHIL (0) 52 %; TOTAL NUCLEATED CELLS 100
[2016-07-31] MEDS ORDERED: PROTONIX PO (12:16)
[2016-07-31] MEDS ORDERED: GLUCOPHAGE1000 MG PO (12:16)
[2016-07-31] MEDS ORDERED: LEVEMFLXPN SC (12:18)
[2016-08-22] MEDS ORDERED: LEVEMIR SC (09:39)
== END 2016-07-31 13:08 | disposition home or self-care (01) | DRG 637 ==
LOC: ER 15:57 → MIC 18:06 → 4SO 07-28 13:38
PROVIDERS: Emergency Medicine; Internal Medicine; Internal Medicine Critical Care Medicine; Internal Medicine Nephrology; Student in an Organized Health Care Education/Training Program
PROC: 02HV33Z Insertion of Infusion Device into Superior Vena Cava, Percutaneous Approach (ICD-10-PCS; principal; 2016-07-24)
PROC: 4A02X4A Measurement of Cardiac Electrical Activity, Guidance, External Approach (ICD-10-PCS; principal; 2016-07-24)
DX: E13.10 Other specified diabetes mellitus with ketoacidosis without coma (principal); G93.41 Metabolic encephalopathy; N17.9 Acute kidney failure, unspecified; E87.0 Hyperosmolality and hypernatremia; K86.2 Cyst of pancreas; E83.39 Other disorders of phosphorus metabolism; D69.6 Thrombocytopenia, unspecified; Z79.84 Long term (current) use of oral hypoglycemic drugs; M54.9 Dorsalgia, unspecified; G89.29 Other chronic pain; E86.0 Dehydration; Z87.891 Personal history of nicotine dependence; E66.9 Obesity, unspecified; Z68.38 Body mass index [BMI] 38.0-38.9, adult; K21.9 Gastro-esophageal reflux disease without esophagitis; E87.6 Hypokalemia; D64.9 Anemia, unspecified; H53.8 Other visual disturbances
CPT/HCPCS: 36569; 36600; 71010; 74000; 74170; 76775; 80048; 80053; 80069; 80305; 81001; 82009; 82043; 82570; 82805; 82962; 83036; 83605; 83690; 83735; 84100; 84132; 84300; 84443; 84484; 85025; 85610; 86022; 86301; 87040; 87641; 93005; 96365; 96375; 97116-GP; 97162-GP; 99291; A9270-GY; C1751; C9113; G8978-CK-GP; G8979-CI-GP; J2405; J3475; Q9967

== ENCOUNTER 2016-08-26 10:05 | Day surgery (SDC) | payer OTHER ==
--- NOTE | ~2016-08-26 | EGD ---
EGD REPORT [facility] [place] [address] [address] NAME: NICA LAGUNA : 62 STATUS : REG [facility]#: [id number] AGE: 56 ADM/REG DATE : 08/26/16 MR#: [id number] REPORT SERV DATE: 08/26/16 DICTATED BY: KIRBY GALARZA DATE: 08/26/16 REPORT STATUS : Draft TRANSCRIBED BY: [employer] DATE: 08/26/16 [facility] Patient Name: Nica Laguna Date of : 1960 Attending MD: KIRBY GALARZA, Procedure Date No Time: 08/26/2016 Procedure: Upper EUS Indications: For evaluation of pancreatic cystic neoplasm Referring MD: COLLIN PIERCE III, YONATAN ALBERTO III, MD Medicines: Monitored Anesthesia Care Complications: No immediate complications. Estimated blood loss: None. Procedure: Pre-Anesthesia Assessment: - ASA Grade Assessment: III - A patient with severe systemic disease. After obtaining informed consent, the endoscope was passed under direct vision. Throughout the procedure, the patient's blood pressure, pulse, and oxygen saturations were monitored continuously. The Endoscope was introduced through the mouth, and advanced to the second part of duodenum. The GIF [id number] was introduced through the mouth, and advanced to the second part of duodenum. Findings: Endoscopic Finding : The examined esophagus was endoscopically normal. Localized nodular mucosa was found in the cardia. Biopsies were taken with a cold forceps for histology. Verification of patient identification for the specimen was done. Estimated blood loss was minimal. The exam of the stomach was otherwise normal. The cardia and gastric fundus were normal on retroflexion. The examined duodenum was endoscopically normal. Endosonographic Finding : Pancreatic parenchymal abnormalities were noted in the entire pancreas. These consisted of diffuse echogenicity. An anechoic lesion suggestive of a cyst was identified in the pancreatic tail. The lesion measured 28 mm by 28 mm in maximal cross-sectional diameter. There was a single compartment without septae. There was no associated mass. There was no internal debris within the fluid-filled cavity. Diagnostic needle aspiration for fluid was performed. Color Doppler imaging was utilized prior to needle puncture to confirm a lack of significant vascular structures within the needle path. One pass was made with the 22 gauge needle using a transgastric approach. No stylet was used. Sample(s) were sent for cytology and CEA. EGD REPORT [address] [address] NAME: NICA LAGUNA : 62 STATUS : REG [facility] PAT#: [id number] AGE: 56 ADM/REG DATE : 08/26/16 MR#: [id number] REPORT SERV DATE: 08/26/16 DICTATED BY: KIRBY GALARZA DATE: 08/26/16 REPORT STATUS : Draft TRANSCRIBED BY: [employer] DATE: 08/26/16 The pancreatic duct had a normal endosonographic appearance in the dorsal anlage of the pancreas. There was no sign of significant endosonographic abnormality in the common bile duct. No lymphadenopathy seen. There was no sign of significant endosonographic abnormality in the examined duodenum. Endosonographic images of the stomach were unremarkable. There was no sign of significant endosonographic abnormality in the esophagus. Impression: - Normal esophagus. - Nodular mucosa in the cardia. Biopsied. - Normal examined duodenum. - Pancreatic parenchymal abnormalities consisting of diffuse echogenicity were noted in the entire pancreas. - A 28 mm by 28 mm cystic lesion was seen in the pancreatic tail. - The pancreatic duct had a normal endosonographic appearance in the dorsal anlage of the pancreas. - There was no sign of significant pathology in the common bile duct. - There was no sign of significant pathology in the examined duodenum. - Endosonographic images of the stomach were unremarkable. - There was no sign of significant pathology in the esophagus. Recommendation: - Return to previous diet. - Return to previous diet. - Continue present medications. - Cipro (ciprofloxacin) 500 mg PO BID for 2 days. - Await cytology results, await path results and await tumor markers. Procedure Code(s): --- Professional --- 83141, Esophagogastroduodenoscopy, flexible, transoral; with transendoscopic ultrasound-guided intramural or transmural fine needle aspiration/biopsy(s) (includes endoscopic ultrasound examination of the esophagus, stomach, and either the duodenum or a surgically altered stomach where the jejunum is examined distal to the anastomosis) Diagnosis Code(s): --- Professional --- K31.9, Disease of stomach and duodenum, unspecified EGD REPORT [facility] [place] [address] [place] [address] [place]. [address] NAME: NICA LAGUNA : 62 STATUS : REG [facility] PAT#: [id number] AGE: 56 ADM/REG DATE : 08/26/16 MR#: [id number] REPORT SERV DATE: 08/26/16 DICTATED BY: KIRBY GALARZA DATE: 08/26/16 REPORT STATUS : Draft TRANSCRIBED BY: [employer] DATE: 08/26/16 K86.9, Disease of pancreas, unspecified K86.2, Cyst of pancreas D49.0, Neoplasm of unspecified behavior of digestive system CPT copyright 2013 [employer]. All rights reserved. The codes documented in this report are preliminary and upon booth cleaner review may be revised to meet current compliance requirements. KIRBY GALARZA, 08/26/2016 12:09 PM Number of Addenda: 0 Note Initiated On: 08/26/2016 11:32 AM Scope Withdrawal Time 0 hours 0 minutes 0 seconds [address] [place] [address]
[~2016-08-26 10:05] MED LIST changes: +GLUCOPHAGE1000 MG PO; +LEVEMFLXPN SC; +LEVEMIR SC; +PROTONIX PO
[2016-08-26 15:19] LABS: BD FL SOURCE (NOT ORD) PANCREATIC CYST
== END 2016-08-26 23:59 | disposition home or self-care (01) ==
LOC: DMU 10:05
PROVIDERS: Internal Medicine Gastroenterology
PROC: 0F9G4ZX Drainage of Pancreas, Percutaneous Endoscopic Approach, Diagnostic (ICD-10-PCS; principal; 2016-08-26 12:30)
DX: K86.2 Cyst of pancreas (principal); K31.9 Disease of stomach and duodenum, unspecified; K86.9 Disease of pancreas, unspecified; D49.0 Neoplasm of unspecified behavior of digestive system; E11.9 Type 2 diabetes mellitus without complications; E66.01 Morbid (severe) obesity due to excess calories; Z68.41 Body mass index [BMI] 40.0-44.9, adult; Z79.899 Other long term (current) drug therapy; Z79.4 Long term (current) use of insulin; Z79.84 Long term (current) use of oral hypoglycemic drugs; Z98.890 Other specified postprocedural states
CPT/HCPCS: 82378; 82962; 88173; 88305; J1956; J2765